=== PATIENT | female | born 1990 | race Caucasian/White ===

== ENCOUNTER 2017-02-15 07:45 | Emergency (ER) | payer BC ==
[~2017-02-15] VITALS: Ht 162.6 cm; Wt 77.1 kg
--- NOTE | 2017-02-15 08:14 | NUR ---
PATIENT BIB MOTHER, STATING SHE WAS IN ER YESTERDAY FOR GENERALIZED RASH. SHE WENT HOME AND CAME BACK TODAY WITH WORSENING SYMPTOMS. HIVES/RASH ALL OVER CHEST, ABDOMEN, BOTH UPPER AND LOWER EXTREMITIES. PATIENT IS BREATHING EVEN AND UNLABORED, DENIES SOB. VITALS STABLE. SAFETY AND COMFORT MEASURES IN PLACE, AWAITING MD ORDERS.
[2017-02-15] MEDS ORDERED: diphenhydrAMINE HCL 25 MG CAPSULE ONE (08:34)
[2017-02-15] MEDS ORDERED: predniSONE 20 MG TABLET ONE (08:35)
[2017-02-15] MEDS ORDERED: FAMOTIDINE (20 MG) 20 MG TABLET ONE (08:35)
[2017-02-15 08:45] VITALS: BP 139/94
--- NOTE | 2017-02-15 08:47 | NUR ---
Medicated patient per MD orders. Patient cleared for discharge. Patient discharged to home in stable condition. Written and verbal after care instructions given. Prescription given to patientPatient verbalizes understanding of instruction.
[2017-02-15] MEDS ORDERED: diphenhydrAMINE HCL 25 MG CAPSULE PO ONE (09:00)
[2017-02-15] MEDS ORDERED: FAMOTIDINE (20 MG) 20 MG TABLET PO ONE (09:00)
[2017-02-15] MEDS ORDERED: predniSONE 20 MG TABLET PO ONE (09:00)
== END 2017-02-15 08:47 | disposition home or self-care (01) ==
LOC: ER 07:46
DX: L27.0 Generalized skin eruption due to drugs and medicaments taken internally (principal); E03.9 Hypothyroidism, unspecified; E28.2 Polycystic ovarian syndrome
CPT/HCPCS: 99284; A4606; J7512; Q0163; Z7610

== ENCOUNTER 2020-08-05 04:54 | Emergency (ER) | payer BC, OTHER ==
[~2020-08-05] VITALS: Ht 162.6 cm; Wt 86.2 kg
[2020-08-05 05:26] VITALS: BP 131/86
== END 2020-08-05 06:58 | disposition home or self-care (01) ==
LOC: ER 04:58
DX: J02.0 Streptococcal pharyngitis (principal); E03.9 Hypothyroidism, unspecified; Z88.2 Allergy status to sulfonamides; Z60.2 Problems related to living alone